=== PATIENT | female | born 1980 | race Caucasian/White ===

== ENCOUNTER 2020-01-27 07:09 | Outpatient (NON) | payer OTHER, SELFPAY ==
[2020-01-27 18:05] LABS: SARS-CoV-2 RNA PCR Negative
== END 2020-01-27 07:10 ==
DX: J02.9 Acute pharyngitis, unspecified (principal); R50.9 Fever, unspecified; Z20.828 Contact with and (suspected) exposure to other viral communicable diseases
CPT/HCPCS: 87635; C9803; U0003